=== PATIENT | female | born 1930 | race Caucasian/White ===

== ENCOUNTER → 2018-11-20 | Outpatient (CLI) | payer MEDICARE | LOC: PLD 07:29 → LAB SHORT 07:29 | DX: C50.912 Malignant neoplasm of unspecified site of left female breast (principal); Z17.0 Estrogen receptor positive status [ER+] | CPT/HCPCS: 88360 ==

== ENCOUNTER 2019-01-16 07:24 | Day surgery (SDC) | payer MEDICARE ==
[~2019-01-16 07:24] MED LIST: ASPI81CH PO; LISI5 PO; THERA1 EACH PO
== END 2019-01-16 23:10 | disposition home or self-care (01) ==
LOC: MOI US 07:24
PROC: 0HBT3ZX Excision of Right Breast, Percutaneous Approach, Diagnostic (ICD-10-PCS; principal; 2019-01-16)
PROC: 07B63ZX Excision of Left Axillary Lymphatic, Percutaneous Approach, Diagnostic (ICD-10-PCS; principal; 2019-01-16)
DX: C77.3 Secondary and unspecified malignant neoplasm of axilla and upper limb lymph nodes (principal); N63.41 Unspecified lump in right breast, subareolar; C50.212 Malignant neoplasm of upper-inner quadrant of left female breast
CPT/HCPCS: 19083; 38505; 76942; 77066; 88305; A4648

== ENCOUNTER 2020-05-07 07:21 | Emergency (ER) | payer MEDICARE ==
[~2020-05-07] VITALS: Ht 165.1 cm; Wt 66.2 kg
[2020-05-07 08:25] LABS: BASOPHILS ABSOLUTE AUTO 0.06 K/mm3 (0.00-0.23); BASOPHILS PERCENT AUTO 1 % (0-2); EOSINOPHILS ABSOLUTE AUTO 0.27 K/mm3 (0.00-0.68); EOSINOPHILS PERCENT AUTO 3 % (0-6); Hematocrit 45.8 % (33.0-51.0); Hemoglobin 14.9 g/dL (11.5-16.0); IMMATURE GRAN ABSOLUTE AUTO 0.02 K/mm3 (0.00-0.10); IMMATURE GRAN PERCENT AUTO 0 % (0-1); LYMPHOCYTES PERCENT AUTO 44 % (21-46); MONOCYTES ABSOLUTE AUTO 0.72 K/mm3 (0.16-1.47); MONOCYTES PERCENT AUTO 9 % (4-13); Mean Corpuscular HGB 29.3 pg (26.0-34.0); Mean Corpuscular HGB Conc 32.5 g/dL (31.5-36.5); Mean Corpuscular Volume 90 fL (80-100); Mean Platelet Volume 10.5 fL (9.1-12.4); NEUTROPHILS PERCENT AUTO 43 % (41-73); Platelet Count 233 K/mm3 (150-400); RDW Coefficient Variation 13.1 % (11.7-14.2); RDW Standard Deviation 43.1 fL (35.1-46.3); Red Blood Cell Count 5.08 M/mm3 (3.80-5.20); White Blood Cell Count 7.97 K/mm3 (4.00-11.30)
[2020-05-07 08:37] LABS: International Normalized Ratio 0.96; Prothrombin Time Results 10.3 Sec (9.7-11.5)
[2020-05-07 08:50] LABS: Alanine Aminotransfer (ALT/SGP 19 U/L (12-78); Albumin, Blood 3.9 g/dL (3.4-5.0); Albumin/Globulin Ratio 1.1 (0.8-1.8); Alk Phos 97 U/L (50-136); Anion Gap 8 mmol/L (6-16); Aspartate Aminotrans (AST/SGOT 28 U/L (12-37); Bilirubin, Total 0.7 mg/dL (0.1-1.0); Blood Urea Nitrogen 16 mg/dL (8-24); Bun/Creatinine Ratio 18.6 (12.0-20.0); CO2, Blood 26 mmol/L (21-32); Calcium, Blood 9.5 mg/dL (8.5-10.1); Chloride, Blood 109 mmol/L (98-108); Creatinine, Blood 0.86 mg/dL (0.40-1.00); Globulin, Blood 3.5 g/dL (2.2-4.0); Glomerular Filtration Rate >60 (60-); Glucose, Blood 95 mg/dL (70-99); Potassium, Blood 4.4 mmol/L (3.5-5.5); Sodium, Blood 143 mmol/L (136-145); Total Protein, Blood 7.4 g/dL (6.4-8.2)
[2020-05-07] MEDS ORDERED: LETR2.5 PO (17:43)
[2020-05-07] MEDS ORDERED: VITAMIN D31000 UNI1 PO (19:19)
[2020-05-08] MEDS ORDERED: CLOP75 PO (12:36)
[2020-05-08] MEDS ORDERED: ATOR20 PO (12:36)
== END 2020-05-07 10:05 | disposition home or self-care (01) ==
LOC: ER 07:21
PROVIDERS: Emergency Medicine
DX: G45.9 Transient cerebral ischemic attack, unspecified (principal); Z79.899 Other long term (current) drug therapy; Z79.82 Long term (current) use of aspirin
CPT/HCPCS: 70450; 80053; 82947; 85025; 85610; 93005; 93010; 99285-25; A9270-GY

== ENCOUNTER 2020-05-07 16:03 | Observation (INO) | payer MEDICARE ==
[~2020-05-07] VITALS: Ht 165.1 cm; Wt 63.9 kg
[2020-05-07 16:46] LABS: BASOPHILS ABSOLUTE AUTO 0.08 K/mm3 (0.00-0.23); BASOPHILS PERCENT AUTO 1 % (0-2); EOSINOPHILS ABSOLUTE AUTO 0.13 K/mm3 (0.00-0.68); EOSINOPHILS PERCENT AUTO 1 % (0-6); Hematocrit 48.7 % (33.0-51.0); Hemoglobin 15.4 g/dL (11.5-16.0); IMMATURE GRAN ABSOLUTE AUTO 0.03 K/mm3 (0.00-0.10); IMMATURE GRAN PERCENT AUTO 0 % (0-1); LYMPHOCYTES ABSOLUTE AUTO 3.13 K/mm3 (0.84-5.20); LYMPHOCYTES PERCENT AUTO 32 % (21-46); MONOCYTES ABSOLUTE AUTO 0.81 K/mm3 (0.16-1.47); MONOCYTES PERCENT AUTO 8 % (4-13); Mean Corpuscular HGB 28.7 pg (26.0-34.0); Mean Corpuscular HGB Conc 31.6 g/dL (31.5-36.5); Mean Corpuscular Volume 91 fL (80-100); Mean Platelet Volume 9.7 fL (9.1-12.4); NEUTROPHILS ABSOLUTE AUTO 5.59 K/mm3 (1.96-9.15); NEUTROPHILS PERCENT AUTO 57 % (41-73); Platelet Count 259 K/mm3 (150-400); RDW Standard Deviation 43.4 fL (35.1-46.3); Red Blood Cell Count 5.37 M/mm3 (3.80-5.20); White Blood Cell Count 9.77 K/mm3 (4.00-11.30)
[2020-05-07 17:14] LABS: Alanine Aminotransfer (ALT/SGP 20 U/L (12-78); Albumin, Blood 4.1 g/dL (3.4-5.0); Albumin/Globulin Ratio 1.2 (0.8-1.8); Alk Phos 103 U/L (50-136); Anion Gap 8 mmol/L (6-16); Aspartate Aminotrans (AST/SGOT 21 U/L (12-37); Bilirubin, Total 0.6 mg/dL (0.1-1.0); Blood Urea Nitrogen 17 mg/dL (8-24); Bun/Creatinine Ratio 19.3 (12.0-20.0); CO2, Blood 26 mmol/L (21-32); Calcium, Blood 9.6 mg/dL (8.5-10.1); Chloride, Blood 109 mmol/L (98-108); Creatinine, Blood 0.88 mg/dL (0.40-1.00); Globulin, Blood 3.5 g/dL (2.2-4.0); Glomerular Filtration Rate >60 (60-); Glucose, Blood 107 mg/dL (70-99); Potassium, Blood 4.1 mmol/L (3.5-5.5); Sodium, Blood 143 mmol/L (136-145); Total Protein, Blood 7.6 g/dL (6.4-8.2)
[2020-05-07] MEDS ORDERED: LETR2.5 PO (17:43)
[2020-05-07] MEDS ORDERED: VITAMIN D31000 UNI1 PO (19:19)
[2020-05-07 20:27] LABS: CHOL/HDL RATIO 3.4; Cholesterol 266 mg/dL (50-200); HDL Cholesterol 78 mg/dL (>39); Low Density Lipoprotein Chol 158 mg/dL (0-110); Triglycerides 151 mg/dL (30-160); Very Low Density Lipoprot Chol 30 mg/dL (6-32)
--- NOTE | 2020-05-08 05:28 | NUR ---
SHIFT SUMMARY PT RESTED COMFORTABLY SINCE ADMISSION TO UNIT AT APPROX 2200 05/07. NEURO CHECKS HAVE REMAINED WNL. NO NEW ONSET OF NUMBNESS OR TINGLING TO EXTREAMITIES. PT HAS REMAINED A&Ox3. STAND BY ASSIST TO BATHROOM, STEADY ON FEET. WILL CONTINUE TO MONITOR
--- NOTE | 2020-05-08 07:32 | NUR ---
AM NOTE PT A&Ox4; CALM AND COOPERATIVE WITH CARE. NO S/SX OF DISTRESS NOTED. PT DENIES NUMB/TINGING TO LEFT SIDE AND LIP AND WEAKNESS TO LLE. RN COMPLIANCE BUE AND FLEX/EXT BLE ARE EQUAL; COORDINATION EQUAL. PERRLA AT 3MM. SPEECH IS CLEAR. LS CLEAR. TELE SINUS AT 61. HYPOACTIVE BOWEL TONES x4 QUAD. ELEVATED BP NOTED. OTHER VSS. NO OTHER ACUTE CHANGES NOTED DURING SHIFT. WILL CONTINUE TO MONITOR. AWAITING ECHO TO BE COMPLETED.
--- NOTE | 2020-05-08 12:15 | NUR ---
echocardiogram completed
[2020-05-08] MEDS ORDERED: ATOR20 PO (12:36)
[2020-05-08] MEDS ORDERED: CLOP75 PO (12:36)
--- NOTE | 2020-05-08 13:08 | NUR ---
DISCHARGE SUMMARY PT CONTINUES TO DENY NUMBNESS/TINGLING AND WEAKNESS T/O. NO CHANGES TO NEURO EXAMS. PT DENIES PAIN, CHEST PAIN, SOB, NAUSEA AND DIZZINESS. VSS. NO OTHER ACUTE CHANGES NOTED. PT AND DAUGHTER EDUCATED ON DISCHARGE INSTRUCTIONS, FOLLOW UP APPOINTMENTS, MEDICATED CHANGES AND NEW MEDICATIONS. PRESCRIPTION FAXED TO [facility] [place]; PT PLANS TO [facility] IN AM. PT LEFT ROOM AT APPROX 1308 VIA WHEELCHAIR. PT STABLE UPON DISCHARGE.
== END 2020-05-08 13:08 | disposition home or self-care (01) ==
LOC: ER 16:03 → ERHOLD 19:51 → PCU 19:51
PROVIDERS: Physician Assistant; ADMIT Family Medicine
DX: I63.9 Cerebral infarction, unspecified (principal); E78.5 Hyperlipidemia, unspecified; I10 Essential (primary) hypertension; C50.912 Malignant neoplasm of unspecified site of left female breast; Z79.899 Other long term (current) drug therapy; Z66 Do not resuscitate
CPT/HCPCS: 36415; 70496; 70498; 80053; 80061; 85025; 93306; 96372; 99285-25; A9270-GY; G0378; J1650; Q9967